=== PATIENT | male | born 1995 | race African-American/Black ===

== ENCOUNTER 2017-08-17 21:52 | Emergency (ER) | payer MEDICAID, OTHER ==
--- NOTE | 2017-08-17 22:30 | EDM.PDOC ---
ED HPI GENERAL MEDICAL PROBLEM - General Stated Complaint: INJURED RT ANKLE Time Seen by Provider: 08/17/17 21:52 Source of Information: Reports: Patient, Other (coworker) History Limitations: Reports: No Limitations - History of Present Illness INITIAL COMMENTS - FREE TEXT/NARRATIVE: 21 y.o.w.m came to the ed with a co worker after he twisted his right ankle at work. mech of injury is not known. Pt is, however, not able to apply weight to his right leg due to pain. No N/V/D or any other acute medical issues. BP 157/ 80 RR 18 Pulse ox 98% on RA Temp 36.8 pulse 85 Onset Date: 08/17/17 Onset Time: 21:00 Duration: Minutes:, Constant, Intermittent Location: Reports: Lower Extremity, Right Quality: Reports: Ache, Burning, Dull Severity: Moderate Improves with: Reports: Cold Therapy, Rest Worsens with: Reports: Movement Context: Reports: Trauma (twisted right ankle at work) Associated Symptoms: Reports: No Other Symptoms right ankle Pain Score (Numeric/FACES): 8 - Related Data Allergies Allergy/AdvReac Type Severity Reaction Status Date / Time No Known Allergies Allergy Verified 06/18/14 17:59 Home Meds: Home Meds NK [No Known Home Meds] 08/17/17 [History] Social & Family History - Tobacco Use Smoking Status *Q: Never Smoker Second Hand Smoke Exposure: No - Alcohol Use Days Per Week of Alcohol Use: 0 - Recreational Drug Use Recreational Drug Use: No Review of Systems - Review of Systems Review Of Systems: See Below Constitutional: Reports: No Symptoms Eyes: Reports: No Symptoms Ears: Reports: No Symptoms Nose: Reports: No Symptoms Mouth/Throat: Reports: No Symptoms Respiratory: Reports: No Symptoms Cardiovascular: Reports: No Symptoms GI/Abdominal: Reports: No Symptoms Genitourinary: Reports: No Symptoms Musculoskeletal: Reports: Joint Swelling (right ankle) Skin: Reports: No Symptoms Neurological: Reports: No Symptoms Psychiatric: Reports: No Symptoms ED EXAM, GENERAL - Physical Exam Exam: See Below Exam Limited By: No Limitations General Appearance: Alert, WD/WN, Mild Distress Eye Exam: Bilateral Eye: Normal Inspection Ears: Normal External Exam Ear Exam: Bilateral Ear: Auricle Normal Nose: Normal Inspection, Normal Mucosa Throat/Mouth: Normal Inspection Head: Atraumatic, Normocephalic Neck: Normal Inspection, Supple, Non-Tender, Full Range of Motion Respiratory/Chest: No Respiratory Distress, Lungs Clear, Normal Breath Sounds, No Accessory Muscle Use, Chest Non-Tender Cardiovascular: Normal Peripheral Pulses, Regular Rate, Rhythm, No Edema, No Gallop, No JVD, No Murmur, No Rub GI/Abdominal: Normal Bowel Sounds, Soft, Non-Tender, No Organomegaly, No Distention, No Abnormal Bruit, No Mass, Pelvis Stable (Male) Exam: Deferred Rectal (Males) Exam: Deferred Back Exam: Normal Inspection, Full Range of Motion Extremities: No Pedal Edema, Normal Capillary Refill, Limited Range of Motion, Other (swelling right ankle lat aspect) Neurological: Alert, Oriented Psychiatric: Normal Affect, Normal Mood Skin Exam: Warm, Dry, Intact, Normal Color, No Rash Lymphatic: No Adenopathy Course - Vital Signs Text/Narrative:: 21 y.o.w.m came to the ed with a co worker after he twisted his right ankle at work. mech of injury is not known. Pt is, however, not able to apply weight to his right leg due to pain. No N/V/D or any other acute medical issues. BP 157/ 80 RR 18 Pulse ox 98% on RA Temp 36.8 pulse 85 PE: 21 y.o.w.m came with coworker to the ed after twisting his right ankle, unable to walk due to pain. Imaging: Right ankle: No Fx Impression: R ankle sprain Tx: Motrin, Ice, ALEX wrap, Crutches Reexam: Improved Plan: D/C with instructions. Last Recorded V/S: Last Vital Signs Temp 36.7 C 08/17/17 22:00 Pulse 72 08/17/17 23:20 Resp 16 08/17/17 23:20 BP 135/88 08/17/17 23:20 Pulse Ox 100 08/17/17 23:20 - Orders/Labs/Meds Orders: Active Orders 24 hr Category Date Time Status Ankle Min 3V Rt [CR] Stat Exams 08/17/17 21:56 Taken Meds: Medications Discontinued Medications Generic Name Dose Route Start Last Admin Trade Name Freq PRN Reason Stop Dose Admin Ketorolac Tromethamine 60 mg 08/17/17 22:33 08/17/17 22:36 Toradol IM 08/17/17 22:34 60 mg ONETIME ONE Administration Departure - Departure Time of Disposition: 22:30 Disposition: Home, Self-Care 01 Condition: Good Clinical Impression: Right ankle sprain Qualifiers: Encounter type: initial encounter Involved ligament of ankle: unspecified ligament Qualified Code(s): S93.401A - Sprain of unspecified ligament of right ankle, initial encounter - Discharge Information Instructions: Ankle Sprain Referrals: Collin Ruiz MD [Primary Care Provider] - Forms: ED Return to Work/School Form Additional Instructions: Rest, Ice and elevation. Please use crutches, weight bearing as tolerated. Please f/u with your PMD, please come back if your symptoms get worse acutely. Motrin for pain - My Orders Last 24 Hours: My Active Orders 08/17/17 21:56 Ankle Min 3V Rt [CR] Stat - Assessment/Plan Last 24 Hours: My Active Orders 08/17/17 21:56 Ankle Min 3V Rt [CR] Stat
[2017-08-17] MEDS ORDERED: Ketorolac 60 MG/2 ML SDV IM ONE (22:33)
[2017-08-17 23:41] VITALS: BP 135/88
--- NOTE | 2017-08-18 10:54 | CR ---
INDICATION: Trauma. RIGHT ANKLE: Three views of the right ankle revealed soft tissue swelling overlying the lateral malleolus. The ankle mortise generally appears fairly intact. However, along the angle portion of the talus at the lateral malleolus, there is question of a small area of decreased density and a tiny bony or calcific density. This could represent a tiny avulsion chip fracture, but more likely represents overlying bony densities - a definite fracture or dislocation was not seen. The appearance of the ankle was otherwise unremarkable. IMPRESSION: Difficult to exclude a very tiny osteochondral chip fracture fragment off the lateral aspect of the plateau portion of the ankle mortise. This should be correlated clinically. Follow-up study in 10-[address] examination may be of further diagnostic benefit. MTDD
== END 2017-08-17 23:30 | disposition home or self-care (01) ==
LOC: FB.ED 21:52
DX: S93.401A Sprain of unspecified ligament of right ankle, initial encounter (principal); X50.9XXA Other and unspecified overexertion or strenuous movements or postures, initial encounter; Y99.0 Civilian activity done for income or pay
CPT/HCPCS: 73610; 96372; 99000; 99283; J1885

== ENCOUNTER 2021-12-10 20:18 | Emergency (ER) | payer BC, OTHER ==
[2021-12-10 21:11] VITALS: BP 141/87; PULSE 93
[2021-12-10] MEDS ORDERED: Cephalexin 500 MG Cap PO STA (22:08)
== END 2021-12-10 22:20 | disposition home or self-care (01) ==
LOC: FB.ED 20:18
DX: L03.90 Cellulitis, unspecified (principal); E10.9 Type 1 diabetes mellitus without complications
CPT/HCPCS: 99283; A9270-GY

== ENCOUNTER 2023-09-03 09:38 | Emergency (ER) | payer BC ==
[2023-09-03 10:25] VITALS: BP 133/90; PULSE 107
[2023-09-03] MEDS: Metoclopramide 10 MG/2 ML SDV IVPUSH ONE (10:51)
[2023-09-03] MEDS: Sodium Chloride 0.9% 1,000 ML IV ONE (10:55)
[2023-09-03 11:14] LABS: BASOPHILS ABSOLUTE AUTO 0.1 x10-3/uL (0.0-0.3); BASOPHILS PERCENT AUTO 0.7 % (0.3-3.8); BLOOD UREA NITROGEN,BUN 17 mg/dL (7-18); CARBON DIOXIDE,CO2 26 mmol/L (21-32); CHLORIDE,CL 107 mmol/L (100-110); EOSINOPHILS ABSOLUTE AUTO 0.2 x10-3/uL (0.0-0.6); EOSINOPHILS PERCENT AUTO 1.8 % (0.1-6.8); EST CRCL DRUG DOSING (CG) 112.92 mL/min; ESTIMATED GFR 107 mL/min (>60); GLUCOSE RANDOM 112 mg/dL (80-116); HEMATOCRIT 38.9 % (38.3-50.1); HEMOGLOBIN 12.8 g/dL (12.9-17.7); LYMPHOCYTES ABSOLUTE AUTO 1.8 x10-3/uL (0.5-4.5); LYMPHOCYTES PERCENT AUTO 15.3 % (15.8-45.3); MEAN CORPUSCULAR HEMOGLOBIN 28.6 pg (27.0-33.3); MEAN CORPUSCULAR HGB CONC 32.9 g/dL (28.7-35.3); MEAN CORPUSCULAR VOLUME 86.7 fL (80.8-98.7); MEAN PLATELET VOLUME 8.4 fL (6.7-11.0); MONOCYTES ABSOLUTE AUTO 0.6 x10-3/uL (0.0-1.2); MONOCYTES PERCENT AUTO 4.8 % (5.5-15.2); NEUTROPHILS ABSOLUTE AUTO 9.3 x10-3/uL (1.7-6.9); NEUTROPHILS PERCENT AUTO 77.4 % (40.3-71.8); PLATELET COUNT,PLT 276 x10(3)uL (117-477); RED BLOOD CELL COUNT 4.49 x10(6)uL (3.90-5.90); RED CELL DISTRIBUTION WIDTH 13.7 % (12.4-15.0); SODIUM,NA 142 mmol/L (135-145)
[2023-09-03 11:14] LABS: BASE EXCESS VENOUS,POC 1 mmol/L (-2 - 3+); PCO2 VENOUS,POC 26 mmHg (41-51); PH VENOUS,POC 7.53 pH Units (7.32-7.43)
[2023-09-03 11:25] LABS: A/G RATIO 0.9; ALANINE AMINOTRANSFERASE,ALT 98 U/L (12-36); ALBUMIN 2.6 g/dL (3.5-5.2); ALKALINE PHOSPHATASE 82 IU/L (56-112); ASPARTATE AMNIOTRANSFERASE,AST 54 IU/L (5-25); BILIRUBIN TOTAL 0.9 mg/dL (0.1-1.3); PROTEIN TOTAL,TP 5.4 g/dL (6.0-8.0)
[2023-09-03 11:51] LABS: INFLUENZA A NAA NEGATIVE (NEGATIVE); INFLUENZA B NAA NEGATIVE (NEGATIVE)
[2023-09-03 11:52] LABS: CORONAVIRUS COVID-19 NAA NEGATIVE (NEGATIVE)
[2023-09-03 12:50] LABS: BILIRUBIN,URINE NEGATIVE (NEGATIVE); GLUCOSE,URINE NORMAL (NORMAL); KETONES,URINE NEGATIVE (NEGATIVE); LEUKOCYTE ESTERASE,URINE NEGATIVE (NEGATIVE); NITRITE,URINE NEGATIVE (NEGATIVE); OCCULT BLOOD,URINE NEGATIVE (NEGATIVE); PROTEIN,URINE 30 mg/dL (NEGATIVE); UROBILINOGEN,URINE 1 mg/dL (NEGATIVE)
[2023-09-03 13:35] LABS: APPEARANCE,URINE CLEAR (CLEAR); BACTERIA,URINE FEW (NS); COLOR,URINE YELLOW (YELLOW); SQUAMOUS EPITHELIAL CELLS,UR FEW (NS,R,O); WBC,URINE 0-5 (0-5)
== END 2023-09-03 15:15 ==
LOC: FB.ED 09:38
DX: I45.81 Long QT syndrome (principal); I50.9 Heart failure, unspecified; R79.82 Elevated C-reactive protein (CRP); R60.1 Generalized edema; E87.3 Alkalosis; R79.89 Other specified abnormal findings of blood chemistry; R63.5 Abnormal weight gain; J45.909 Unspecified asthma, uncomplicated; E10.9 Type 1 diabetes mellitus without complications; Z79.899 Other long term (current) drug therapy
CPT/HCPCS: 0240U; 71046; 80053; 81001; 83605; 83735; 83880; 84484; 85025; 86140; 93005; 96361; 96374; 99285; J2765; J7030

== ENCOUNTER 2023-10-13 20:56 | Emergency (ER) | payer BC ==
[2023-10-13 21:24] LABS: BASOPHILS ABSOLUTE AUTO 0.1 x10-3/uL (0.0-0.3); BASOPHILS PERCENT AUTO 1.1 % (0.3-3.8); EOSINOPHILS ABSOLUTE AUTO 0.2 x10-3/uL (0.0-0.6); EOSINOPHILS PERCENT AUTO 2.1 % (0.1-6.8); HEMATOCRIT 39.4 % (38.3-50.1); HEMOGLOBIN 12.7 g/dL (12.9-17.7); LYMPHOCYTES ABSOLUTE AUTO 2.1 x10-3/uL (0.5-4.5); MEAN CORPUSCULAR HEMOGLOBIN 28.2 pg (27.0-33.3); MEAN CORPUSCULAR HGB CONC 32.2 g/dL (28.7-35.3); MEAN CORPUSCULAR VOLUME 87.6 fL (80.8-98.7); MEAN PLATELET VOLUME 9.9 fL (6.7-11.0); MONOCYTES ABSOLUTE AUTO 0.4 x10-3/uL (0.0-1.2); MONOCYTES PERCENT AUTO 4.9 % (5.5-15.2); NEUTROPHILS PERCENT AUTO 64.9 % (40.3-71.8); PLATELET COUNT,PLT 185 x10(3)uL (117-477); RED BLOOD CELL COUNT 4.49 x10(6)uL (3.90-5.90); RED CELL DISTRIBUTION WIDTH 14.5 % (12.4-15.0); WHITE BLOOD CELL COUNT,WBC 7.7 x10-3/uL (3.2-10.1)
[2023-10-13 21:27] VITALS: BP 94/63; PULSE 104
[2023-10-13] MEDS: Sodium Chloride 0.9% 1,000 ML IV ONE (21:27)
[2023-10-13 21:28] LABS: BLOOD UREA NITROGEN,BUN 20 mg/dL (7-18); BUN/CREATININE RATIO 13.3 (9-20); CALCIUM 8.2 mg/dL (8.6-10.2); CARBON DIOXIDE,CO2 23 mmol/L (21-32); CHLORIDE,CL 104 mmol/L (100-110); CREATININE 1.5 mg/dL (0.70-1.30); EST CRCL DRUG DOSING (CG) 75.28 mL/min; ESTIMATED GFR 66 mL/min (>60); GLUCOSE RANDOM 140 mg/dL (80-116); POTASSIUM,K 3.4 mmol/L (3.5-5.3); SODIUM,NA 139 mmol/L (135-145)
[2023-10-13 21:34] LABS: A/G RATIO 1.1; ALANINE AMINOTRANSFERASE,ALT 65 U/L (12-36); ALBUMIN 2.9 g/dL (3.5-5.2); ALKALINE PHOSPHATASE 112 IU/L (56-112); ASPARTATE AMNIOTRANSFERASE,AST 38 IU/L (5-25); BILIRUBIN TOTAL 1.8 mg/dL (0.1-1.3); PROTEIN TOTAL,TP 5.6 g/dL (6.0-8.0)
[2023-10-13] MEDS: Sodium Chloride 0.9% 1,000 ML IV SCH (21:39)
[2023-10-13] MEDS: Metoclopramide 10 MG/2 ML SDV IVPUSH ONE (21:39)
[2023-10-13] MEDS: diphenhydrAMINE 50 MG/ML SDV IVPUSH ONE (21:39)
[2023-10-13] MEDS: Potassium Chloride 20 MEQ Tab.ER PO ONE (21:59)
[2023-10-13] MEDS: Ketorolac 30 MG/ML SDV IVPUSH ONE (22:03)
[2023-10-14] MEDS: Aspirin 81 MG Tab.Chew PO ONE (02:45)
== END 2023-10-14 02:50 | disposition critical access hospital (66) ==
LOC: FB.ED 20:56
DX: I24.9 Acute ischemic heart disease, unspecified (principal); I11.0 Hypertensive heart disease with heart failure; I50.9 Heart failure, unspecified; E10.9 Type 1 diabetes mellitus without complications; E66.9 Obesity, unspecified; Z86.16 Personal history of COVID-19; Z79.4 Long term (current) use of insulin; Z79.899 Other long term (current) drug therapy; Z68.42 Body mass index [BMI] 45.0-49.9, adult; Z79.01 Long term (current) use of anticoagulants
CPT/HCPCS: 36415; 71045; 80053; 84484; 85025; 96361; 96374; 96375; 99285; A9270; J1200; J2765; J7030; 93005; 93010

== ENCOUNTER 2023-12-17 13:06 | Emergency (ER) | payer BC ==
[2023-12-17 13:51] LABS: BASE EXCESS VENOUS,POC 0 mmol/L (-2 - 3+); PCO2 VENOUS,POC 30 mmHg (41-51); PH VENOUS,POC 7.49 pH Units (7.32-7.43)
[2023-12-17 13:53] LABS: BASOPHILS ABSOLUTE AUTO 0.1 x10-3/uL (0.0-0.3); BASOPHILS PERCENT AUTO 0.8 % (0.3-3.8); BLOOD UREA NITROGEN,BUN 20 mg/dL (7-18); BUN/CREATININE RATIO 14.3 (9-20); CALCIUM 8.9 mg/dL (8.6-10.2); CARBON DIOXIDE,CO2 31 mmol/L (21-32); CHLORIDE,CL 97 mmol/L (100-110); CREATININE 1.4 mg/dL (0.70-1.30); EOSINOPHILS ABSOLUTE AUTO 0.2 x10-3/uL (0.0-0.6); EOSINOPHILS PERCENT AUTO 2.2 % (0.1-6.8); EST CRCL DRUG DOSING (CG) 79.96 mL/min; ESTIMATED GFR 71 mL/min (>60); GLUCOSE RANDOM 239 mg/dL (80-116); HEMATOCRIT 38.9 % (38.3-50.1); HEMOGLOBIN 12.6 g/dL (12.9-17.7); LYMPHOCYTES ABSOLUTE AUTO 2.1 x10-3/uL (0.5-4.5); LYMPHOCYTES PERCENT AUTO 22.6 % (15.8-45.3); MEAN CORPUSCULAR HEMOGLOBIN 27.4 pg (27.0-33.3); MEAN CORPUSCULAR HGB CONC 32.4 g/dL (28.7-35.3); MEAN CORPUSCULAR VOLUME 84.4 fL (80.8-98.7); MEAN PLATELET VOLUME 9.8 fL (6.7-11.0); MONOCYTES ABSOLUTE AUTO 0.5 x10-3/uL (0.0-1.2); MONOCYTES PERCENT AUTO 5.4 % (5.5-15.2); NEUTROPHILS ABSOLUTE AUTO 6.3 x10-3/uL (1.7-6.9); PLATELET COUNT,PLT 162 x10(3)uL (117-477); POTASSIUM,K 4.5 mmol/L (3.5-5.3); SODIUM,NA 134 mmol/L (135-145); WHITE BLOOD CELL COUNT,WBC 9.1 x10-3/uL (3.2-10.1)
[2023-12-17 13:59] LABS: A/G RATIO 1.1; ALANINE AMINOTRANSFERASE,ALT 32 U/L (12-36); ALBUMIN 3.5 g/dL (3.5-5.2); ALKALINE PHOSPHATASE 111 IU/L (56-112); ASPARTATE AMNIOTRANSFERASE,AST 28 IU/L (5-25); BILIRUBIN TOTAL 1.2 mg/dL (0.1-1.3); MAGNESIUM 1.5 mg/dL (1.8-2.5); PROTEIN TOTAL,TP 6.6 g/dL (6.0-8.0)
[2023-12-17 14:07] LABS: TROPONIN I 79.8 pg/mL (4.0-60.3)
[2023-12-17 15:14] LABS: AMPHETAMINES SCREEN, URINE NEGATIVE (NEGATIVE); BARBITURATE SCREEN,URINE NEGATIVE (NEGATIVE); BENZODIAZEPINES SCREEN,URINE NEGATIVE (NEGATIVE); METHADONE SCREEN, URINE NEGATIVE (NEGATIVE); METHAMPHETAMINE SCREEN, URINE NEGATIVE (NEGATIVE); OXYCODONE SCREEN,URINE NEGATIVE (NEGATIVE); THC SCREEN,URINE NEGATIVE (NEGATIVE)
[2023-12-17 15:15] LABS: BUPRENORPHINE SCREEN,URINE NEGATIVE (NEGATIVE)
[2023-12-17 15:31] VITALS: PULSE 118
[2023-12-17] MEDS: Metolazone 5 MG Tab PO ONE (16:13)
[2023-12-17 16:28] VITALS: BP 97/59
== END 2023-12-17 16:22 | disposition home or self-care (01) ==
LOC: FB.ED 13:06
DX: I42.8 Other cardiomyopathies (principal); I11.0 Hypertensive heart disease with heart failure; I50.43 Acute on chronic combined systolic (congestive) and diastolic (congestive) heart failure; J45.909 Unspecified asthma, uncomplicated; E10.9 Type 1 diabetes mellitus without complications; Z86.16 Personal history of COVID-19; Z87.891 Personal history of nicotine dependence; Z79.4 Long term (current) use of insulin; Z79.82 Long term (current) use of aspirin; Z79.899 Other long term (current) drug therapy
CPT/HCPCS: 36415; 71045; 80053; 80307; 83735; 83880; 84484; 85025; 93005; 99285; A9270-GY

== ENCOUNTER 2024-07-05 10:20 | Emergency (ER) | payer BC ==
[2024-07-05 10:56] LABS: BASOPHILS ABSOLUTE AUTO 0.1 x10-3/uL (0.0-0.3); BASOPHILS PERCENT AUTO 0.7 % (0.3-3.8); EOSINOPHILS ABSOLUTE AUTO 0.5 x10-3/uL (0.0-0.6); EOSINOPHILS PERCENT AUTO 5.3 % (0.1-6.8); HEMATOCRIT 46.8 % (38.3-50.1); LYMPHOCYTES PERCENT AUTO 21.6 % (15.8-45.3); MEAN CORPUSCULAR HEMOGLOBIN 27.6 pg (27.0-33.3); MEAN CORPUSCULAR HGB CONC 34.1 g/dL (28.7-35.3); MEAN PLATELET VOLUME 8.5 fL (6.7-11.0); MONOCYTES ABSOLUTE AUTO 0.6 x10-3/uL (0.0-1.2); NEUTROPHILS ABSOLUTE AUTO 6.3 x10-3/uL (1.7-6.9); NEUTROPHILS PERCENT AUTO 66.4 % (40.3-71.8); PLATELET COUNT,PLT 199 x10(3)uL (117-477); RED CELL DISTRIBUTION WIDTH 19.4 % (12.4-15.0); WHITE BLOOD CELL COUNT,WBC 9.4 x10-3/uL (3.2-10.1)
[2024-07-05 10:59] LABS: BLOOD UREA NITROGEN,BUN 13 mg/dL (7-18); BUN/CREATININE RATIO 10.8 (9-20); CALCIUM 9.2 mg/dL (8.6-10.2); CARBON DIOXIDE,CO2 31 mmol/L (21-32); CHLORIDE,CL 99 mmol/L (100-110); CREATININE 1.2 mg/dL (0.70-1.30); ESTIMATED GFR 86 mL/min (>60); GLUCOSE RANDOM 135 mg/dL (80-116); POTASSIUM,K 3.8 mmol/L (3.5-5.3); SODIUM,NA 140 mmol/L (135-145)
[2024-07-05 11:05] LABS: A/G RATIO 0.9; ALANINE AMINOTRANSFERASE,ALT 28 U/L (12-36); ALBUMIN 4.1 g/dL (3.5-5.2); ALKALINE PHOSPHATASE 146 IU/L (56-112); ASPARTATE AMNIOTRANSFERASE,AST 19 IU/L (5-25); PROTEIN TOTAL,TP 8.6 g/dL (6.0-8.0)
[2024-07-05 11:07] LABS: RED BLOOD CELL COUNT 5.78 x10(6)uL (3.90-5.90)
[2024-07-05 11:10] LABS: INR 1.59 (1.00-1.24); PROTHROMBIN TIME 15.9 sec (9.0-11.1)
[2024-07-05 11:13] LABS: TROPONIN I 10.5 pg/mL (4.0-60.3)
[2024-07-05 13:49] VITALS: BP 126/107; PULSE 100
== END 2024-07-05 12:55 | disposition home or self-care (01) ==
LOC: FB.ED 10:20
DX: R00.0 Tachycardia, unspecified (principal); E83.42 Hypomagnesemia; I13.0 Hypertensive heart and chronic kidney disease with heart failure and stage 1 through stage 4 chronic kidney disease, or unspecified chronic kidney disease; I50.9 Heart failure, unspecified; N18.9 Chronic kidney disease, unspecified; Z86.16 Personal history of COVID-19; E10.22 Type 1 diabetes mellitus with diabetic chronic kidney disease; E66.9 Obesity, unspecified; Z79.899 Other long term (current) drug therapy; Z79.02 Long term (current) use of antithrombotics/antiplatelets; Z79.82 Long term (current) use of aspirin; Z68.42 Body mass index [BMI] 45.0-49.9, adult
CPT/HCPCS: 36415; 71045; 80053; 83735; 83880; 84484; 85025; 85610; 93005; 99285